=== PATIENT | male | born 1985 | race Two or more races ===

== ENCOUNTER 2016-03-08 19:12 | Emergency (ER) | payer SELFPAY ==
[~2016-03-08] VITALS: Ht 172.7 cm; Wt 106.6 kg
[2016-03-08 19:40] VITALS: BP 135/89
[2016-03-08] MEDS ORDERED: Tetracaine 0.5% Opth Soln LEFT EYE ONE (20:00)
[2016-03-08 21:00] VITALS: BP 135/89
--- NOTE | 2016-03-09 14:34 | Emergency Room Report ---
History of Present Illness General Chief Complaint: Eye Problems Source: Patient Present Illness HPI The patient is a 30-year-old male presented for increased vision to his left eye. Patient had called ambulance after he noticed decreased vision to his left eye associated with some headache. He had not been vomiting. He denied recent trauma. The patient reports having been having some blurring of vision prior to increased difficulty seeing.The patient had symptoms for approximately 4 days. Allergies: Coded Allergies: No Known Allergies (Unverified , 03/08/16) Patient History Past Medical History: see triage record Reviewed Nursing Documentation: PMH: Agreed, PSxH: Agreed Nursing Documentation-PMH Past Medical History: No Stated History Review of Systems All Other Systems: negative except mentioned in HPI Physical Exam Vital Signs Date Time Temp Pulse Resp B/P Pulse Ox O2 Delivery O2 Flow Rate FiO2 03/08/16 19:30 98.4 135/89 96 Room Air 03/08/16 19:40 78 18 General Appearance: well appearing, no apparent distress, obese Head: normocephalic, atraumatic Eyes: bilateral eye EOMI, bilateral eye PERRL ENT: hearing grossly normal, normal voice Neck: full range of motion, supple Respiratory: no respiratory distress, speaking full sentences Cardiovascular #1: normal peripheral pulses, regular rate, rhythm Gastrointestinal: normal bowel sounds, non tender, soft Musculoskeletal: normal inspection, no calf tenderness Neurologic: alert, oriented x3, normal gait Psychiatric: mood/affect normal Skin: no rash Medical Decision Making Diagnostic Impression: Primary Impression: Visual changes ER Course Patient presented for headache.Differential diagnoses included but was not limited to skull fracture, subarachnoid hemorrhage, meningitis, aneurysm, mass lesion, intracranial hemorrhage, glaucoma. Patient was noted to have normal intraocular pressures measured by Silas-Pen. The patient was noted to have equal and reactive pupils bilaterally. The patient was pending CT of his head when he eloped without notifying staff. Last Vital Signs Date Time Temp Pulse Resp B/P Pulse Ox O2 Delivery O2 Flow Rate FiO2 03/08/16 21:05 98.4 03/08/16 21:00 78 18 135/89 96 Room Air Status: unchanged Disposition: ELOPED Condition: Stable Haider Partida Mar 09, 2016 14:34
== END 2016-03-08 21:00 | disposition left against medical advice (07) ==
LOC: EMR 19:55
DX: H54.62 Unqualified visual loss, left eye, normal vision right eye (principal)